=== PATIENT | female | born 1985 | race Caucasian/White ===

== ENCOUNTER 2016-10-07 11:42 | Emergency (ER) | payer OTHER ==
[~2016-10-07] VITALS: Ht 165.1 cm; Wt 61.2 kg
[~2016-10-07 11:42] MED LIST: CYCLOBENZAPRINE5 MG PO; MIRENA1 EACH IY
[2016-10-07] MEDS ORDERED: NAPROSYN500 MG PO (14:32)
[2016-10-07] MEDS ORDERED: NORCO 10-325 T1 EACH PO (14:32)
== END 2016-10-07 14:41 | disposition home or self-care (01) ==
LOC: ED 11:42
DX: N83.202 Unspecified ovarian cyst, left side (principal); Z88.5 Allergy status to narcotic agent; Z79.899 Other long term (current) drug therapy
CPT/HCPCS: 76770; 76830; 76856; 80053; 81001; 83690; 84703; 85025; 96374; 99284; J1885

== ENCOUNTER 2018-02-19 05:40 | Day surgery (SDC) | payer BC ==
[~2018-02-19] VITALS: Ht 165.1 cm; Wt 70.3 kg
[~2018-02-19 05:40] MED LIST changes: +NAPROSYN500 MG PO; +NORCO 10-325 T1 EACH PO
--- NOTE | 2018-02-19 07:44 | NUR ---
PT ALERT, ORIENTED AND SUPPORTED BY HER DAD. PT IS VISIBLY UNEASY REGARDING SURGERY TODAY, WE SPENT TIME OUTLINING WHAT THEY COULD EXPECT REGARDING THE PROCESS. PT REQUESTED PRAYER, DAD MENTIONED THAT PT HAS TROUBLE "WAKING UP" FOLLOWING ANESTHESIA FROM PREVIOUS SURGERY. SHARED THEIR CONCERNS WITH DIANE LIN, HE WILL ADDRESS THIS FOR THEM. WILL FOLLOW NEEDED
--- NOTE | 2018-02-19 09:12 | NUR ---
02/19/18 0912 Susana Salgado 0845 PATIENT ARRIVES TO PACU, AWAKE BUT VERY DROWSY, FACE IS VERY PALE. PATIENT C/O NAUSEA. [employer] CONSERVATIONIST STATES PATIENT WAS JUST MEDICATED FOR NAUSEA. PATIENT DENIES PAIN. RESP EVEN, UNLABORED, BUT NEEDS REMINDED TO TAKE DEEP BREATHS AND ENCOURAGED TO COUGH. MASK AT 6 LITERS WITH SATS AT 100%. 0850 PATIENT CONTINUES TO C/O NAUSEA. DENIES PAIN. MASK OFF, WITH SATS ABOVE 90%. 09 PATIENT NAUSEA IMPROVING AFTER BEING REMEDICATED FOR NAUSEA. NOW PATIENT IS MORE RELAXED, RESP SHALLOW AND SLOW, NEEDS FREQUENT REMINDING TO TAKE DEEP BREATHS AND COUGH. PATIENT FOLLOWS COMMANDS. 09 PATIENT CONTINUES TO HAVE SHALLOW BREATHING, BUT RESP MORE REGULAR RATE, NC AT 2L APPLIED WITH SATS ABOVE 90%.
[2018-02-19] MEDS ORDERED: NORCO 5-325 TA1 EACH PO (09:48)
--- NOTE | 2018-02-19 10:25 | NUR ---
HAS BEEN UP TO BR. STATES SHE VOMITED IN SINK. VOIDS QS.
--- NOTE | 2018-02-19 10:26 | NUR ---
1025 [employer] ORDERED SCOPALOMINE PATCH THIS PLACED BEHIND R EAR. INSTRUCTED TO WASH HANDS IF TOUCHES PATCH. 3 DAY PATCH TO REMOVE 3RD DAY OR IF TOO SKLEEPY SOONER.
--- NOTE | 2018-02-19 11:32 | NUR ---
FEELING BETTER NO NAUSEA JUST FEELS TIRED. PAIN 0/10. IMMOBILIZER CONTS IN PLACE
--- NOTE | 2018-02-19 11:50 | NUR ---
DOING WELL WANTS TO GO HOME DENIES NAUSEA WITH MOVEMENT. IMMOBILIZER IN PLACE DAD HERE TO TAKE HOME.
--- NOTE | 2018-03-03 07:17 | OR ---
[facility] [address] [place], [place] [address] Signed DATE OF OPERATION: 02/19/2018 SURGEON: Stephanie Pepper MD PREOPERATIVE DIAGNOSIS: Chronic recurring dislocation, left shoulder. POSTOPERATIVE DIAGNOSIS: Chronic recurring dislocation, left shoulder. PROCEDURE PERFORMED: Bankart repair, left shoulder. ANESTHESIA: General. SPECIMENS AND COMPLICATIONS: There were no specimens or complications. BLOOD LOSS: Minimal. WHAT WAS DONE: The patient was taken to the operating room, placed on table in a supine position. After anesthesia was induced and airway secured, the patient was positioned, prepped and draped in a routine sterile fashion, in a modified beach chair position. The bony topography of the shoulder was outlined with a skin marking pencil and the arthroscope was introduced through the standard posterior portal. Diagnostic arthroscopy of the shoulder joint revealed an unremarkable glenoid and unremarkable humeral head. The biceps tendon and biceps anchor appeared intact. The anterior aspect of the glenoid was completely denuded with no attached labrum or broad ligamentous complex. The remainder of the shoulder was unremarkable. We created an anterior portal using a switching stick technique and introduced the VAPR device. We removed all soft tissue off the anterior aspect of the glenoid and then used a bur to decorticate the glenoid neck. We then created a 2nd anterior inferior portal and placed it to a labral tapes, and a fiber stick suture through the labrum and attached ligamentous complex. We then secured these with the 3 separate PushLocks. This gave us a sound to secure repair and there was no residual instability of the shoulder. The shoulder was irrigated and drained. The portals were closed and sterile dressings applied. The patient was awakened and taken to recovery Electronically Signed By: STEPHANIE PEPPER MD 03/03/18 0717 PATIENT NAME: MAYRA CRANE OPERATIVE REPORT DATE OF : 89 REPORT #: [id number] PHYSICIAN: STEPHANIE PEPPER MD PCP: JUICE SANCHEZ PAC REPORT IS CONFIDENTIAL AND NOT TO BE RELEASED WITHOUT AUTHORIZATION [facility] [address] [place] [id number] Signed room where she arrived in stable condition. Counts were correct and antibiotic protocols were followed. Stephanie Pepper MD W[facility]/MODL /[id number] Copies: ~ Electronically Signed By: STEPHANIE PEPPER MD 03/03/18 0717 PATIENT NAME: MAYRA CRANE OPERATIVE REPORT DATE OF : 89 REPORT #: [id number] PHYSICIAN: STEPHANIE PEPPER MD PCP: JUICE SANCHEZ PAC REPORT IS CONFIDENTIAL AND NOT TO BE RELEASED WITHOUT AUTHORIZATION
== END 2018-02-19 11:45 | disposition home or self-care (01) ==
LOC: OPS 05:40 → DS 05:40 → OPS 06:45 → DS 06:45 → OPS 11:45
PROVIDERS: Orthopaedic Surgery
PROC: 0RQK4ZZ Repair Left Shoulder Joint, Percutaneous Endoscopic Approach (ICD-10-PCS; principal; 2018-02-19 06:45)
DX: M24.412 Recurrent dislocation, left shoulder (principal); J45.909 Unspecified asthma, uncomplicated; Z87.442 Personal history of urinary calculi; Z88.5 Allergy status to narcotic agent
CPT/HCPCS: 01630; 64415; 76942; C1713; J0690; J1100; J2250; J2405; J2704; J2765; J2795; J3010; J7120